=== PATIENT | male | born 1930 | race Caucasian/White ===

== ENCOUNTER 2016-11-06 10:56 | Inpatient (IN) ==
[2016-11-06] MEDS ORDERED: cefTRIAXone 1,000 MG in SODIUM CHLORIDE 0.9% 100 ML IV STA (11:56)
[2016-11-06] MEDS ORDERED: SODIUM CHLORIDE 0.9% 1,000 ML IV STA (11:56)
[2016-11-06] MEDS ORDERED: methylPREDNISolone SOD SUC 125 MG/2 ML VIAL IV STA (11:56)
[2016-11-06] MEDS ORDERED: ONDANSETRON 4 MG/2 ML VIAL IV STA (11:56)
[2016-11-06] MEDS ORDERED: ALBUTEROL 2.5 MG/3 ML NEB RESP TX SCH (12:00)
[2016-11-06 12:06] LABS: Basophils % 0.1 % (0.0-0.8); Eosinophils # 0.1 10*3/uL (0.0-0.87); Eosinophils % 0.4 % (0.00-10.9); Hematocrit 38.2 VOL% (42.0-52.0); Hemoglobin 12.7 GM/DL (14.0-18.0); Immature Granulocytes % 2.1 %; Immature Granulocytes Absolute 0.25 #; Lymphocytes # 1.2 10*3/uL (1.4-4.0); Lymphocytes % 10.2 % (21.2-54.2); Mean Corpuscular HGB Conc 33.2 GM/DL (32-36); Mean Corpuscular Hemoglobin 29 PG (27-34); Mean Platelet Volume 10.9 FL (9.6-12.0); Monocytes # 0.9 10*3/uL (0.11-0.8); Monocytes % 7.8 % (1.7-12.7); Neutrophils # 9.5 10*3/uL (1.4-7.4); Neutrophils % 79.4 % (38.7-73.9); Platelet Count 296 T/CUMM (130-400); Red Blood Count 4.44 MC/CUMM (3.8-5.5); Red Cell Distribution Width 13.6 % (9.3-17.3); White Blood Count 11.9 T/CUMM (4-12)
[2016-11-06 12:22] LABS: Albumin 2.9 G/DL (3.4-5.0); Bilirubin,Total 0.4 MG/DL (0.2-1.0); Calcium 8.9 MG/DL (8.5-10.1); Magnesium 2.4 MG/DL (1.8-2.4); Osmolality,Calculated 313.4 MOS/KG (273-304); Potassium 4.5 MMOL/L (3.5-5.1); Total Protein 6.9 G/DL (6.4-8.3); Troponin I Only 0.019 NG/ML (0.00-0.045)
--- NOTE | 2016-11-06 12:30 | Emergency Department Note ---
Cleo Bustos Rolonda, am scribing for, and in the presence of, Rigoberto Queen MD 12:18. Bret Bustos Charles R, MD, personally performed the services described in this documentation, ascribed by Willow Gallo in my presence, and it is both accurate and complete 230 . Arrival - Arrival Chief Complaint: Upper Respiratory Stated Complaint: sent by Dr Akbar Patterson to be admitted through ER ED Nursing Triage Note: C/o cough and generalized weakness-onset last week. Patient was sent by Dr. Patterson to be admitted here for possible bronchitis/ pneumonia. Son also reports that patient fell last night--has fallen 4 times in the past 2 days. Was offered admission on Thursday, but refused to stay. Mode of Arrival: Wheelchair Limitations: No Limitations Source: Patient, Family (son), Old Records Reviewed, RN Notes Reviewed - History of Present Illness HPI Narrative: Pt is a 86 y/o male who was transferred from Dr. Charlie Patterson to the ED for further evaluation of reproductive cough with an onset of x1 week. Pt's son states that pt was evaluated by Dr. Patterson, was Dx and treated as if he had bronchitis. Pt was advised to be admitted but declined and was sent home with medications. Sxs worsened which prompted visit to the ED. Son also states that pt fell yesterday and laid on the floor all night until he was able to crawl to the phone and call him. Pt confirms hitting his head after the fall, neck pain due to the fall, cold chills, and shaking. Onset (ago): week(s) Consistency: constant Severity: moderate Severity scale (1-10): 4 Allergies/Adverse Reactions: Allergies Allergy/AdvReac Type Severity Reaction Status Date / Time Iodinated Contrast Media - Allergy Severe ANAPHYLAXIS Verified 07/01/16 11:31 Oral and Home Medications: Home Medications Medication Instructions Recorded Confirmed Type Aspirin [Ecotrin] 81 mg PO DAILY 07/01/16 11/06/16 History Clorazepate [Tranxene] 3.75 mg PO TID 07/01/16 11/06/16 History Ferrous Sulfate 325 mg PO DAILY 07/01/16 11/06/16 History Meclizine [Antivert] 25 mg PO TID PRN 07/01/16 11/06/16 History Omeprazole Magnesium [Prilosec Otc] 20 mg PO DAILY 07/01/16 11/06/16 History PARoxetine [Paxil] 20 mg PO QAM 07/01/16 11/06/16 History Propranolol HCl [Propranolol Tab] 10 tablet PO DAILY 07/01/16 11/06/16 History Acetaminophen 650 mg PO Q6H PRN 11/06/16 11/06/16 History Magnesium Chloride [Slow Mag] 64 mg PO DAILY 11/06/16 11/06/16 History Multivitamin (Centrum) [Centrum 1 tablet PO DAILY 11/06/16 11/06/16 History Tab] Review of System - Review of System Constitutional: Present: chills (cold), weakness, other (shaking). Absent: fever Eyes: Absent: pain, redness Head/Ears/Nose/Throat: Absent: earache Respiratory: Present: cough. Absent: respiratory distress Cardiovascular: Absent: chest pain Gastrointestinal: Absent: abdominal pain, nausea, vomiting, diarrhea Musculoskeletal: Present: neck pain Medical,Surgical,& Family Hx - Medical History Cardio: History of: Hypertension Psychological: History of: Anxiety Disorders Endocrine: History of: Dyslipidemia Musculoskeletal: History of: Degenerative Disk Disease - Surgical History Cardiac Surgeries: Sugical HX of: Cardiac Surgery (for Valve repair) Thoracic Surgeries: Surgical HX of;: Lobectomy (partial right upper lobe) HEENT Surgeries: Surgical HX of: Eye Surgery (cataract) - Social History Smoking Status: Never smoker Frequency of Alcohol Use: None Type of Drug Use: None Exam Vital Signs: Vital Signs Temperature 98.5 F 11/06/16 11:30 Pulse Rate 70 11/06/16 13:41 Respiratory Rate 23 11/06/16 13:41 Blood Pressure 136/60 11/06/16 11:30 O2 Sat by Pulse Oximetry 100 11/06/16 13:41 - General General appearance: alert, in no apparent distress, lethargic (weak looking), other (temporal wasting) - Head Head exam: Present: atraumatic, normocephalic. Absent: normal inspection ( bruising on head due to falling) - Eye Eye exam: Present: PERRL, EOMI, other (sunken orbits) - ENT ENT exam: Present: mucous membranes dry. Absent: mucous membranes moist - Neck Neck exam: Present: other (posterior neck pain). Absent: normal inspection ( neck pain ) - Chest Chest inspection: Present: symmetric chest wall rise. 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 Absent: tenderness - Extremities Exam Extremities exam: Present: full ROM. Absent: tenderness - Back Exam Back exam: Present: full ROM. Absent: tenderness - Neurological Exam Neurological exam: Present: alert, oriented X3, CN II-XII intact - Psychiatric Psychiatric exam: Present: normal affect, normal mood - Skin Skin exam: Present: warm, dry, other (global atrophy) Course - Consultations Consultation #1: Dr. Patterson will admit patient Time: 14:12 Results - Labs CBC & BMP: 11/06/16 11:21 11/06/16 11:21 Lab Results: I have reviewed the patients labs Labs: Laboratory Tests 11/06/16 11/06/16 11:21 11:21 WBC 11.9 RBC 4.44 Hgb 12.7 L Hct 38.2 L MCV 86.0 L Plt Count 296 Neut % (Auto) 79.4 H Lymph % (Auto) 10.2 L Neut # (Auto) 9.5 H Lymph # (Auto) 1.2 L Ashe # (Auto) 0.9 H Sodium 140 Potassium 4.5 Chloride 105 Carbon Dioxide 24 Anion Gap 15.5 H BUN 110 H Creatinine 4.00 H GFR Calculation 14 BUN/Creatinine Ratio 27.00 H Calculated Osmolality 313.4 H Albumin 2.9 L Globulin 4.0 H Albumin/Globulin Ratio 0.7 L Laboratory Tests 11/06/16 11:21 B-Natriuretic Peptide 174 H - Diagnostic Findings Procedure: Chest x-ray: report reviewed by me (Right lower lung parenchymal disease of uncertain chronicity. Differential diagnosis includes interval development of scarring, pneumonia, and even pulmonary contusion. Follow-up chest x-ray may provide clarification. Chronic lung changes otherwise. Previous median sternotomy and cardia valve replacement.), CT: report reviewed by me ( Head/Brain: 1. 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 2. Global atrophy. 3. No acute hemorrhage or infarction or mass effect otherwise noted. Cervical Spine: 1. No fracture or dislocation. 2. Uncovertebral spurring and disc space narrowing at C5-C6 and C6-7. 3. Calcified granulomas in the left apex with underlying COPD and hyperinflation.) Disposition Clinical Impression: Upper respiratory infection, Bronchitis, CKD (chronic kidney disease) stage 4, GFR 15-29 ml/min, Dehydration, History of falling, Generalized weakness, Debility, Pneumonia, Acute on chronic renal failure Case discussed with: patient, patient's family Disposition: Still a Patient Condition: Guarded Time of Disposition: 14:13
--- NOTE | 2016-11-06 12:38 | CT Report ---
Exam: CT scan of brain without contrast Date: 11/06/2016 Indication: Pain secondary to fall Comparison: None Patient's classification: Emergency department Technical: Images were obtained from the skull base to the vertex without the use of intravenous contrast. Dose reduction was performed with decreasing kv and mA and automated exposure Total DLP: 1081.1 mGy*cm Findings: The brainstem is unremarkable. The cerebellum reveals some atrophy changes present. Cerebral hemispheres reveal old infarction or encephalomalacia change in the frontal subcortical white matter junction on the right. Small vessel changes are present. There is enlargement of ventricles and global atrophy. The paranasal sinuses are intact. No obvious acute hemorrhage or infarction present. The mastoids are unremarkable. Vascular plaque within the internal carotid arteries. Impression: 1. 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 2. Global atrophy 3. No acute hemorrhage or infarction or mass effect otherwise noted. PROCEDURE INTERPRETED AT [facility] DEPARTMENT OF RADIOLOGY Final Report Signed by: Dr. Jose Elias Pisano
[2016-11-06] MEDS ORDERED: cefTRIAXone 1,000 MG VIAL ONE (12:41)
--- NOTE | 2016-11-06 12:41 | CT Report ---
Exam:CT cervical spine wo con Date:11/06/2016 11:56 AM Indication: Pain secondary to fall Comparison: None Total DLP: 301.8 mGy*cm Technical: Sagittal axial and coronal imaging was available for review with out the use of intravenous contrast. Dose reduction was performed with decreasing kv and mA and automated exposure Findings: 7 cervical vertebral bodies are demonstrated. The vertebral body heights, lamina, pedicles, and posterior elements are intact. The arch at C1 and C2 and odontoid process are intact. The examination reveals spur formation and disc space narrowing present at C5-C6 to lesser degree C6-7. Some calcification of the nuchal fold present posteriorly at C7. Uncovertebral osteophytic spurring present at multiple levels. Facet arthropathy is present. Vascular calcification of the carotid arteries present. Calcified granulomas are present in the left upper chest with underlying COPD and hyperinflation. Impression 1. No fracture or dislocation. 2. Uncovertebral spurring and disc space narrowing at C5-C6 and C6-7 3. Calcified granulomas in the left apex with underlying COPD and hyperinflation. PROCEDURE INTERPRETED AT [facility] DEPARTMENT OF RADIOLOGY Final Report Signed by: Dr. Jose Elias Pisano
[2016-11-06] MEDS ORDERED: ONDANSETRON 4 MG/2 ML VIAL ONE (12:42)
[2016-11-06] MEDS ORDERED: methylPREDNISolone SOD SUC 125 MG/2 ML VIAL ONE (12:42)
--- NOTE | 2016-11-06 13:12 | XRay Report ---
History: Shortness of breath Date: 11/06/2016 Study: Chest x-ray AP portable Comparison exam: December 21, 2009 The cardiac silhouette is not enlarged. The patient is status post previous median sternotomy and cardiac valve replacement. The pulmonary vasculature is not engorged. There is no layering pleural effusion. There is some patchy and strandy parenchymal density in the right mid to lower lung which could represent interval development of scarring, pneumonia, or even element of pulmonary contusion. The patient reportedly fell. There is no pneumothorax. There are some scattered emphysematous changes. There are old rib fractures on the left. Impression: Right lower lung parenchymal disease of uncertain chronicity. Differential diagnosis includes interval development of scarring, pneumonia, and even pulmonary contusion. Follow-up chest x-ray may provide clarification. Chronic lung changes otherwise. Previous median sternotomy and cardiac valve replacement PROCEDURE INTERPRETED AT [facility] DEPARTMENT OF RADIOLOGY Final Report Signed by: Dr. Rita Shanks
[2016-11-06] MEDS ORDERED: ALBUTEROL/IPRATROPIUM 3 ML NEB RESP TX PRN (17:20)
[2016-11-06] MEDS ORDERED: MORPHINE 2 MG/1 ML SYRINGE IV PRN (17:20)
[2016-11-06] MEDS ORDERED: ONDANSETRON 4 MG/2 ML VIAL IV PRN (17:20)
[2016-11-06] MEDS ORDERED: ACETAMINOPHEN 325 MG TABLET PO PRN (17:20)
[2016-11-06] MEDS ORDERED: MECLIZINE 25 MG TABLET PO PRN (17:20)
[2016-11-06] MEDS ORDERED: SODIUM CHLORIDE 0.9% 500 ML IV ONE (18:11)
[2016-11-06] MEDS: CLORAZEPATE 3.75 MG TABLET PO SCH ×2 (18:17→22:03)
[2016-11-06] MEDS: SODIUM CHLORIDE 0.9% 1,000 ML IV SCH (18:17)
--- NOTE | 2016-11-06 18:40 | Family Practice History&Phys ---
Assessment and Plan (1) Upper respiratory infection Status: Acute Assessment and plan: 11/06/2016: Patient is currently on Rocephin and Zithromax. I am going to get a pulmonary consult since the patient did fail outpatient therapy. Is on O2 as needed Current Visit: Yes (2) Bronchitis Status: Acute Assessment and plan: 11/06/2016: As noted above pulmonary consult and we will do breathing treatments duo nebs. Current Visit: Yes (3) Dehydration Status: Acute Assessment and plan: 11/06/2016. Patient actually is of normal saline to see if this will hydrate him some. We will have to be careful with fluid overload. Baseline fluids are at 125 mils an hour from now. Current Visit: Yes (4) History of falling Status: Acute Assessment and plan: 11/06/2016: Hopefully turning him around with antibiotics and fluids will keep him from falling. He is probably orthostatic Current Visit: Yes (5) Debility Status: Acute Assessment and plan: 11/06/2016: Please see notes above Current Visit: Yes (6) Pneumonia Status: Acute Assessment and plan: 11/06/2016: Placed on antibiotic Current Visit: Yes History of Present Illness Chief complaint: Shortness of breath, status post fall, pneumonia History of present illness: Mr. Pittman is a 86 year old male Came to my clinic this past Thursday with shortness of breath and it was obvious that he had either bronchitis or pneumonia. We discussed coming to the hospital and the patient was quite weak. he did not want to come in at that time so we treated him with an injection of Rocephin and put him on antibiotics. Today he was feeling worse and apparently had a fall at home last night. He has some generalized weakness, today and has fallen multiple times over the last few days. Apparently he hit his head and neck but we did do a CAT scan of both of these which were negative. Today his chest x-ray reveals some right lower and middle lobe infiltrate. I do not believe this is an aspiration issue and he has been placed on Rocephin and Zithromax. He does have stage IV renal disease with creatinine of 4 and has had this chronically. We are going to have to monitor this closely and watch for nephrotoxic drugs. Patient lives at home with his who is even more debilitated than he is. He does take care of her to the extent that he can and this is some troubling for him. We are going to get social media marketing specialist involved. He may require swing bed before he gets back home. He is very cognitive for his age and has no other issues except for mild depression probably relating to having to care for his . Home Medications Medication Instructions Recorded Confirmed Type Aspirin [Ecotrin] 81 mg PO DAILY 07/01/16 11/06/16 History Clorazepate [Tranxene] 3.75 mg PO TID 07/01/16 11/06/16 History Ferrous Sulfate 325 mg PO DAILY 07/01/16 11/06/16 History Meclizine [Antivert] 25 mg PO TID PRN 07/01/16 11/06/16 History Omeprazole Magnesium [Prilosec Otc] 20 mg PO DAILY 07/01/16 11/06/16 History PARoxetine [Paxil] 20 mg PO QAM 07/01/16 11/06/16 History Propranolol HCl [Propranolol Tab] 10 tablet PO DAILY 07/01/16 11/06/16 History Acetaminophen 650 mg PO Q6H PRN 11/06/16 11/06/16 History Magnesium Chloride [Slow Mag] 64 mg PO DAILY 11/06/16 11/06/16 History Multivitamin (Centrum) [Centrum 1 tablet PO DAILY 11/06/16 11/06/16 History Tab] Allergies Allergy/AdvReac Type Severity Reaction Status Date / Time Iodinated Contrast Media - Allergy Severe ANAPHYLAXIS Verified 07/01/16 11:31 Oral and 12 point system: reviewed and no additional remarkable complaints except as stated (Except those mentioned in the history and physical.) Medical,Surgical,& Family Hx - Medical History Cardio: History of: Hypertension Psychological: History of: Anxiety Disorders Endocrine: History of: Dyslipidemia Musculoskeletal: History of: Degenerative Disk Disease - Surgical History Cardiac Surgeries: Sugical HX of: Cardiac Surgery (for Valve repair) Thoracic Surgeries: Surgical HX of;: Lobectomy (partial right upper lobe) HEENT Surgeries: Surgical HX of: Eye Surgery (cataract) - Social History Smoking Status: Never smoker Frequency of Alcohol Use: None Type of Drug Use: None Exam - Constitutional Vitals: Period Temp Pulse Resp BP Sys/Serrano Pulse Ox Last 24 Hr 97.4 F-98.5 F 67-92 20-23 89-148/44-81 94-100 Exam: Generally very weak man appears his approximate age of 86 years. Is answering questions appropriately and has good wit. HEENT neck is supple trachea midline. The oropharynx is negative without any angioedema. Cardiovascular Lungs positive rhonchi particularly in the right field. Chest x-ray does reveal lung changes consistent with infiltrate or according to radiology possible pulmonary contusion. Abdomen soft nondistended nontender patient is actually eating at this moment. Extremities no clubbing cyanosis or edema positive radial and dorsalis pedal pulses bilateral upper and lower extremities Neurologically no cranial nerve deficits are appreciated. No peripheral lateralizing signs. Results - Labs CBC & BMP: 11/06/16 11:21 11/06/16 11:21
[2016-11-06] MEDS: AZITHROMYCIN INJ 500 MG in SODIUM CHLORIDE 0.9% 250 ML IV SCH (19:16)
[2016-11-06] MEDS: DOCUSATE SODIUM 100 MG CAPSULE PO SCH (22:02)
[2016-11-06] MEDS: ENOXAPARIN 30 MG/0.3 ML SYRINGE SUBCUT SCH (22:02)
[2016-11-07] MEDS: SODIUM CHLORIDE 0.9% 1,000 ML IV SCH ×6 (06:20→17:51)
[2016-11-07 06:35] LABS: Basophils % 0.1 % (0.0-0.8); Hemoglobin 10.6 GM/DL (14.0-18.0); Immature Granulocytes % 1.6 %; Immature Granulocytes Absolute 0.16 #; Lymphocytes # 0.6 10*3/uL (1.4-4.0); Lymphocytes % 6.1 % (21.2-54.2); Mean Corpuscular HGB Conc 32.1 GM/DL (32-36); Mean Corpuscular Hemoglobin 28 PG (27-34); Mean Corpuscular Volume 87.1 FL (87-102); Mean Platelet Volume 10.8 FL (9.6-12.0); Monocytes # 0.2 10*3/uL (0.11-0.8); Monocytes % 2.3 % (1.7-12.7); Neutrophils # 9.2 10*3/uL (1.4-7.4); Neutrophils % 89.9 % (38.7-73.9); Platelet Count 272 T/CUMM (130-400); Red Blood Count 3.79 MC/CUMM (3.8-5.5); Red Cell Distribution Width 13.7 % (9.3-17.3); White Blood Count 10.3 T/CUMM (4-12)
[2016-11-07 07:08] LABS: Albumin 2.5 G/DL (3.4-5.0); Bilirubin,Total 0.6 MG/DL (0.2-1.0); Calcium 8.1 MG/DL (8.5-10.1); Magnesium 2.4 MG/DL (1.8-2.4); Potassium 4.5 MMOL/L (3.5-5.1); Total Protein 6.1 G/DL (6.4-8.3)
--- NOTE | 2016-11-07 07:12 | XRay Report ---
Exam: XR chest 2V Date: 11/07/2016 4:00 AM Indication: Shortness of breath Comparison: 11/06/2016 Technical: PA lateral Findings: Component of fibrotic scarring present over the right chest. Calcified node in the perihilar region with calcified nodule in the left apical region. Old left rib fractures are present. Previous sternotomy and valve replacement surgery. No obvious pneumothorax. The bony thoracic spine is demonstrated with degenerative changes without acute findings Impression: 1. Underlying component of COPD and fibrotic scarring with previous sternotomy and valve replacement surgery. 2. Underlying granuloma changes also present 3. No obvious acute infiltrate or congestive failure PROCEDURE INTERPRETED AT [facility] DEPARTMENT OF RADIOLOGY Final Report Signed by: Dr. Jose Elias Pisano
[2016-11-07] MEDS ORDERED: NON-FORMULARY MEDICATION (Omeprazole Magnesium [Prilosec Otc] 20 MG) PO SCH (09:00)
--- NOTE | 2016-11-07 09:36 | Pulmonology Consult Note ---
Assessment and Plan (1) History of falling Status: Acute Assessment and plan: The patient apparently has been very weak and has multiple falls. He will need to be evaluated from a social standpoint. He may need assisted living. Current Visit: Yes (2) Debility Status: Acute Assessment and plan: The patient is an elderly male that does look somewhat debilitated. Current Visit: Yes (3) Pneumonia Status: Acute Assessment and plan: The patient does have infiltrates in his right base and right middle lobe. He will continue with IV antibiotics. Current Visit: Yes (4) HTN (hypertension), benign Status: Chronic Assessment and plan: The patient's blood pressure is under good control at present Current Visit: No (5) CKD (chronic kidney disease) stage 4, GFR 15-29 ml/min Problem details: Immproved to near baseline. Status: Chronic Assessment and plan: The patient's creatinine is 3.4 today. Current Visit: Yes History of Present Illness Chief complaint: Pneumonia History of present illness: Mr. Pittman is a 86 year old white male that came in yesterday with likely pneumonia. The patient has been weak and debilitated lately and has been falling at home. All week he has been having some cough and congestion and came in more short of breath. He was found to have worsening infiltrates in his right lung and is admitted for pneumonia. The patient says he feels a little better this morning. He has been coughing up some sputum. He is not having any chest pain. He has not had any definite lung disease although he did have some lung surgery in the past. He is also had a valve repair in the past. He does have a history of hypertension and hyperlipidemia. He does have chronic renal insufficiency. Home Medications Medication Instructions Recorded Confirmed Type Aspirin [Ecotrin] 81 mg PO DAILY 07/01/16 11/06/16 History Clorazepate [Tranxene] 3.75 mg PO TID 07/01/16 11/06/16 History Ferrous Sulfate 325 mg PO DAILY 07/01/16 11/06/16 History Meclizine [Antivert] 25 mg PO TID PRN 07/01/16 11/06/16 History Omeprazole Magnesium [Prilosec Otc] 20 mg PO DAILY 07/01/16 11/06/16 History PARoxetine [Paxil] 20 mg PO QAM 07/01/16 11/06/16 History Propranolol HCl [Propranolol Tab] 10 tablet PO DAILY 07/01/16 11/06/16 History Acetaminophen 650 mg PO Q6H PRN 11/06/16 11/06/16 History Benzonatate 1 capsule PO TID PRN 11/06/16 11/06/16 History Magnesium Chloride [Slow Mag] 64 mg PO DAILY 11/06/16 11/06/16 History Meloxicam [Mobic] 12.5 mg PO DAILY 11/06/16 11/06/16 History Multivitamin (Centrum) [Centrum 1 tablet PO DAILY 11/06/16 11/06/16 History Tab] Tamsulosin HCl 1 tablet PO BEDTIME 11/06/16 11/06/16 History levoFLOXacin [Levofloxacin] 1 tablet PO DAILY 11/06/16 11/06/16 History Allergies Allergy/AdvReac Type Severity Reaction Status Date / Time Iodinated Contrast Media - Allergy Severe ANAPHYLAXIS Verified 07/01/16 11:31 Oral and - Constitutional Constitutional: Present: fatigue, fever(s), frequent falls, weakness. Absent: chills - EENT Eyes: Absent: loss of vision Ears: Present: decreased hearing Nose, mouth and throat: Absent: dysphagia, headache(s), sinus pressure - Cardiovascular Cardiovascular: Present: dyspnea on exertion. Absent: chest pain at rest, edema , orthopnea, palpitations - Respiratory Respiratory: Present: cough, dyspnea on exertion, change in phlegm color. Absent: hemoptysis, pain on inspiration - Gastrointestinal Gastrointestinal: Absent: abdominal pain, change in bowel habits, dysphagia, nausea, vomiting - Genitourinary Genitourinary: Absent: difficulty urinating, dysuria, hematuria - Musculoskeletal Musculoskeletal: Present: arthralgias, muscle weakness - Neurological Neurological: Absent: abnormal speech, focal weakness, paresthesias - Psychiatric Psychiatric: Present: depression Exam (Pulmonay) H&P - Constitutional Vitals: Period Temp Pulse Resp BP Sys/Serrano Pulse Ox Last 24 Hr 97.1 F-98.5 F 67-96 16-23 89-148/44-81 94-100 General appearance: normal weight, no acute distress (Patient is a elderly man but looks reasonably comfortable in bed.) - Head Head exam: Present: normal inspection, normocephalic - Eye Eye exam: Present: EOMI. Absent: scleral icterus Pupils: Present: BRIGITTE - ENT ENT exam: Present: normal exam - Neck Neck exam: Present: normal inspection. Absent: lymphadenopathy, thyromegaly - Respiratory Respiratory exam: Present: rales, rhonchi, other (He has fairly good breath sounds bilaterally). Absent: accessory muscle use - Cardiovascular Cardiovascular exam: Present: regular rate and rhythm, systolic murmur (He has a soft murmur). Absent: gallop - GI/Abdominal GI/Abdominal exam: Present: normal bowel sounds, soft. Absent: organomegaly, tenderness - Extremities Exam Extremities exam: Absent: calf tenderness, edema - Neurological Exam Neurological exam: Present: alert, oriented X3, CN II-XII intact. Absent: motor sensory deficit - Psychiatric Psychiatric exam: Present: normal affect - Skin Skin exam: Present: warm, dry Medical,Surgical,& Family Hx - Medical History Cardio: History of: Hypertension Psychological: History of: Anxiety Disorders Endocrine: History of: Dyslipidemia Musculoskeletal: History of: Degenerative Disk Disease - Surgical History Cardiac Surgeries: Sugical HX of: Cardiac Surgery (for Valve repair) Thoracic Surgeries: Surgical HX of;: Lobectomy (partial right upper lobe) HEENT Surgeries: Surgical HX of: Eye Surgery (cataract) - Social History Smoking Status: Never smoker Frequency of Alcohol Use: None Type of Drug Use: None Results - Labs CBC & BMP: 11/07/16 05:56 11/07/16 05:56 - Diagnostic Findings Procedure: Chest x-ray: image reviewed by me, report reviewed by me (Chest x- ray does show patchy infiltrates in the right lower lobe and right lower lobe.)
[2016-11-07] MEDS: MULTIVITAMIN (CENTRUM) TABLET PO SCH (10:32)
[2016-11-07] MEDS: FERROUS SULFATE 325 MG TABLET PO SCH (10:32)
[2016-11-07] MEDS: MAGNESIUM CHLORIDE 64 MG TABLET PO SCH (10:32)
[2016-11-07] MEDS: ASPIRIN EC 81 MG TABLET PO SCH (10:32)
[2016-11-07] MEDS: PARoxetine 20 MG TABLET PO SCH (10:32)
[2016-11-07] MEDS: DOCUSATE SODIUM 100 MG CAPSULE PO SCH ×2 (10:33→20:49)
[2016-11-07] MEDS: PROPRANOLOL 10 MG TABLET PO SCH (10:33)
[2016-11-07] MEDS: PANTOPRAZOLE 40 MG VIAL IV SCH (10:33)
[2016-11-07] MEDS: CLORAZEPATE 3.75 MG TABLET PO SCH ×3 (10:38→20:49)
[2016-11-07] MEDS ORDERED: SODIUM CHLORIDE 0.9% 1,000 ML IV ONE (12:27)
[2016-11-07] MEDS: cefTRIAXone 1,000 MG in SODIUM CHLORIDE 0.9% 100 ML IV SCH (14:24)
[2016-11-07] MEDS ORDERED: GLUCAGON 1 MG VIAL IM PRN (15:02)
[2016-11-07] MEDS ORDERED: DEXTROSE 50% 25 GM/50 ML VIAL IV PRN (15:02)
--- NOTE | 2016-11-07 15:06 | Family Practice Progress Note ---
Family Practice - PN: Subj Interval history: Patient seen this morning. He still very weak and actually coughing a little bit. States he feels less strength than yesterday. Does seem to be with a little continued dehydration. Did eat breakfast this morning. Has not had a bowel movement but states he is passing gas and also voiding fairly well. No fever or chills. Pulmonary to see him agreed with pneumonia and we are going to continue him on his current antibiotics and will be in over the weekend. I will get adoption social worker to see him for discharge planning, I do believe he will need swing bed for a while. We will also continue breathing treatments Exam (Progress Note) - Constitutional Vitals: Period Temp Pulse Resp BP Sys/Serrano Pulse Ox Last 24 Hr 97.1 F-98.4 F 72-96 16-20 89-142/44-72 95-98 Exam: Generally very weak, continues to be so HEENT neck is supple trachea midline. The oropharynx is negative without any angioedema. Cardiovascular Lungs positive rhonchi particularly in the right field. No wheezing at present Abdomen soft nondistended nontender patient is actually eating at this moment. Extremities no clubbing cyanosis or edema positive radial and dorsalis pedal pulses bilateral upper and lower extremities Neurologically no cranial nerve deficits are appreciated. No peripheral lateralizing signs. Results - Labs CBC & BMP: 11/07/16 05:56 11/07/16 05:56 Assessment and Plan (1) Upper respiratory infection Status: Acute Assessment and plan: 11/06/2016: Patient is currently on Rocephin and Zithromax. I am going to get a pulmonary consult since the patient did fail outpatient therapy. Is on O2 as needed 11/07/2016: Continuing Rocephin and Zithromax. Pulmonary seen and no overall changes may Current Visit: Yes (2) Bronchitis Status: Acute Assessment and plan: 11/06/2016: As noted above pulmonary consult and we will do breathing treatments duo nebs. 11/07/2016: On antibiotics as noted above Current Visit: Yes (3) Dehydration Status: Acute Assessment and plan: 11/06/2016. Patient actually is of normal saline to see if this will hydrate him some. We will have to be careful with fluid overload. Baseline fluids are at 125 mils an hour from now. 11/07/2016: I went ahead and gave him a 500 male additional bolus of IV fluids to get his blood pressure up which is running around 95/60 Current Visit: Yes (4) History of falling Status: Acute Assessment and plan: 11/06/2016: Hopefully turning him around with antibiotics and fluids will keep him from falling. He is probably orthostatic 11/07/2016: We will get PT and OT consult Current Visit: Yes (5) Debility Status: Acute Assessment and plan: 11/06/2016: Please see notes above 11/07/2016: As noted above. We will get PT and OT Current Visit: Yes (6) Pneumonia Status: Acute Assessment and plan: 11/06/2016: Placed on antibiotic Current Visit: Yes
[2016-11-07] MEDS: AZITHROMYCIN INJ 500 MG in SODIUM CHLORIDE 0.9% 250 ML IV SCH (17:50)
[2016-11-07] MEDS: ENOXAPARIN 30 MG/0.3 ML SYRINGE SUBCUT SCH (20:49)
[2016-11-08] MEDS: ALUMINUM/MAGNES/SIMETH MAX STR 30 ML UDCUP PO PRN (01:10)
[2016-11-08] MEDS: SODIUM CHLORIDE 0.9% 1,000 ML IV SCH ×4 (01:14→23:15)
[2016-11-08] MEDS: PANTOPRAZOLE 40 MG VIAL IV SCH (09:15)
[2016-11-08] MEDS: ASPIRIN EC 81 MG TABLET PO SCH (09:15)
[2016-11-08] MEDS: MULTIVITAMIN (CENTRUM) TABLET PO SCH (09:15)
[2016-11-08] MEDS: MAGNESIUM CHLORIDE 64 MG TABLET PO SCH (09:15)
[2016-11-08] MEDS: FERROUS SULFATE 325 MG TABLET PO SCH (09:15)
[2016-11-08] MEDS: PROPRANOLOL 10 MG TABLET PO SCH (09:15)
[2016-11-08] MEDS: PARoxetine 20 MG TABLET PO SCH (09:15)
[2016-11-08] MEDS: DOCUSATE SODIUM 100 MG CAPSULE PO SCH ×3 (09:15→20:42)
[2016-11-08] MEDS: CLORAZEPATE 3.75 MG TABLET PO SCH ×3 (09:15→21:06)
--- NOTE | 2016-11-08 10:54 | Internal Med Progress Note ---
Assessment and Plan (1) Bronchitis Status: Acute Current Visit: Yes (2) Debility Status: Acute Current Visit: Yes (3) Dehydration Status: Acute Current Visit: Yes (4) History of falling Status: Acute Current Visit: Yes (5) Pneumonia Status: Acute Current Visit: Yes (6) Upper respiratory infection Status: Acute Current Visit: Yes (7) CKD (chronic kidney disease) stage 4, GFR 15-29 ml/min Problem details: Immproved to near baseline. Status: Chronic Current Visit: Yes (8) BPH w urinary obs/LUTS Problem details: Commonly causes an RTA 4 type picture with hyperkalemia. No obstruction. Continue flomax 0.4 once hs. May be increased in a week or so if sxs not improved. Counseled regarding orthostatic side effects. Urology to see today. Status: Chronic Current Visit: No (9) Polycystic kidney disease Problem details: mass like effect Status: Chronic Current Visit: Yes Internal Medicine - PN: Subj Interval history: This is an 86 year old male patient of Dr. Charlie Patterson with history of chronic renal insufficiency, HTN, who presented with pneumonia, bronchitis, dehydration and acute renal failure. He is doing better, but not yet ready for discharge. Exam (Progress Note) - Constitutional Vitals: Period Temp Pulse Resp BP Sys/Serrano Pulse Ox Last 24 Hr 97.0 F-98.6 F 75-90 18-22 103-151/51-83 93-97 General appearance: no acute distress - Respiratory Respiratory exam: Present: clear to auscultation bilaterally - Cardiovascular Cardiovascular exam: Present: regular rate and rhythm - GI/Abdominal GI/Abdominal exam: Present: normal bowel sounds, soft. Absent: tenderness - Extremities Exam Extremities exam: Absent: edema - Neurological Exam Neurological exam: Present: alert - Psychiatric Psychiatric exam: Present: normal mood - Skin Skin exam: Present: warm, dry Results - Labs CBC & BMP: 11/07/16 05:56 11/07/16 05:56 - Diagnostic Findings Procedure: Chest x-ray: report reviewed by me
--- NOTE | 2016-11-08 11:21 | Pulmonology Progress Note ---
Pulmonary - PN: Subj Interval history: This is an 86-year-old male whom I am seeing for Dr. Oswaldo Mcmullen. Patient is under the care of Dr. Sulaiman Patterson. This man has had a right lung pneumonia and he is been very debilitated. His breathing has improved. There were no new requests. There were no complaints. Physical exam. Vital signs. See below Neurologic. Unchanged from previous descriptions. Neck. No meningismus Chest fairly clear Heart no gallop Abdomen. Positive bowel sounds Lower extremities no evidence of deep venous thrombophlebitis The remainder of the physical exam is negative Plan. 1. Continue present regimen 2. No changes Exam (Progress Note) - Constitutional Vitals: Period Temp Pulse Resp BP Sys/Serrano Pulse Ox Last 24 Hr 97.0 F-98.6 F 75-90 18-22 103-151/51-83 93-97 Results - Labs CBC & BMP: 11/07/16 05:56 11/07/16 05:56
[2016-11-08] MEDS: cefTRIAXone 1,000 MG in SODIUM CHLORIDE 0.9% 100 ML IV SCH (13:37)
[2016-11-08] MEDS: MAGNESIUM HYDROXIDE SUSP 30 ML UDCUP PO SCH ×2 (13:37→21:06)
[2016-11-08] MEDS: AZITHROMYCIN INJ 500 MG in SODIUM CHLORIDE 0.9% 250 ML IV SCH (16:59)
[2016-11-08] MEDS: ENOXAPARIN 30 MG/0.3 ML SYRINGE SUBCUT SCH (20:42)
[2016-11-09] MEDS: ACETAMINOPHEN 325 MG TABLET PO PRN ×3 (02:24→23:43)
[2016-11-09] MEDS: MAGNESIUM HYDROXIDE SUSP 30 ML UDCUP PO SCH ×3 (05:25→21:16)
[2016-11-09 05:58] LABS: Basophils % 0.1 % (0.0-0.8); Eosinophils # 0.1 10*3/uL (0.0-0.87); Eosinophils % 1.1 % (0.00-10.9); Hematocrit 31.5 VOL% (42.0-52.0); Immature Granulocytes % 2.7 %; Immature Granulocytes Absolute 0.27 #; Lymphocytes # 1.3 10*3/uL (1.4-4.0); Lymphocytes % 12.6 % (21.2-54.2); Mean Corpuscular HGB Conc 31.7 GM/DL (32-36); Mean Corpuscular Hemoglobin 28 PG (27-34); Monocytes # 0.6 10*3/uL (0.11-0.8); Neutrophils # 7.8 10*3/uL (1.4-7.4); Neutrophils % 77.5 % (38.7-73.9); Platelet Count 297 T/CUMM (130-400); Red Blood Count 3.58 MC/CUMM (3.8-5.5); Red Cell Distribution Width 14.3 % (9.3-17.3); White Blood Count 10.1 T/CUMM (4-12)
[2016-11-09 06:46] LABS: Alanine Aminotransferase 17 U/L (16-61); Albumin 2.2 G/DL (3.4-5.0); Alkaline Phosphatase 74 U/L (45-117); Aspartate Amino Transferase 21 U/L (0-37); Bilirubin,Total < 0.39 MG/DL (0.2-1.0); Blood Urea Nitrogen 65 MG/DL (7-18); Calcium 8.1 MG/DL (8.5-10.1); Glucose 83 MG/DL (74-106); Magnesium 1.8 MG/DL (1.8-2.4); Osmolality,Calculated 303.8 MOS/KG (273-304); Phosphorous 2.7 MG/DL (2.5-4.9); Potassium 5.1 MMOL/L (3.5-5.1); Sodium 144 MMOL/L (136-145); Total Protein 5.1 G/DL (6.4-8.3)
[2016-11-09] MEDS: SODIUM CHLORIDE 0.9% 1,000 ML IV SCH ×2 (08:00→21:12)
[2016-11-09] MEDS: PANTOPRAZOLE 40 MG VIAL IV SCH (08:03)
[2016-11-09] MEDS: ASPIRIN EC 81 MG TABLET PO SCH (08:03)
[2016-11-09] MEDS: DOCUSATE SODIUM 100 MG CAPSULE PO SCH ×2 (08:03→21:11)
[2016-11-09] MEDS: PROPRANOLOL 10 MG TABLET PO SCH (08:03)
[2016-11-09] MEDS: MULTIVITAMIN (CENTRUM) TABLET PO SCH (08:03)
[2016-11-09] MEDS: MAGNESIUM CHLORIDE 64 MG TABLET PO SCH (08:03)
[2016-11-09] MEDS: PARoxetine 20 MG TABLET PO SCH (08:03)
[2016-11-09] MEDS: CLORAZEPATE 3.75 MG TABLET PO SCH ×3 (08:03→21:11)
[2016-11-09] MEDS: FERROUS SULFATE 325 MG TABLET PO SCH (08:03)
--- NOTE | 2016-11-09 11:22 | Internal Med Progress Note ---
Assessment and Plan (1) Bronchitis Status: Resolved Current Visit: Yes (2) Debility Status: Chronic Current Visit: Yes (3) Dehydration Status: Acute Current Visit: Yes (4) History of falling Status: Chronic Current Visit: Yes (5) Pneumonia Status: Acute Current Visit: Yes (6) Upper respiratory infection Status: Acute Current Visit: Yes (7) CKD (chronic kidney disease) stage 4, GFR 15-29 ml/min Problem details: Immproved to near baseline. Status: Chronic Current Visit: Yes (8) BPH w urinary obs/LUTS Problem details: Commonly causes an RTA 4 type picture with hyperkalemia. No obstruction. Continue flomax 0.4 once hs. May be increased in a week or so if sxs not improved. Counseled regarding orthostatic side effects. Urology to see today. Status: Chronic Current Visit: No (9) Polycystic kidney disease Problem details: mass like effect Status: Chronic Current Visit: Yes Internal Medicine - PN: Subj Interval history: This is an 86 year old male patient of Dr. Charlie Patterson with history of chronic renal insufficiency, HTN, who presented with pneumonia, bronchitis, dehydration and acute renal failure. He is doing better, and will be ready for discharge in the morning. Exam (Progress Note) - Constitutional Vitals: Period Temp Pulse Resp BP Sys/Serrano Pulse Ox Last 24 Hr 98.2 F-99.3 F 69-86 18-22 117-164/59-91 90-99 Exam: General appearance: no acute distress - Respiratory Respiratory exam: Present: clear to auscultation bilaterally - Cardiovascular Cardiovascular exam: Present: regular rate and rhythm - GI/Abdominal GI/Abdominal exam: Present: normal bowel sounds, soft. Absent: tenderness - Extremities Exam Extremities exam: Absent: edema - Neurological Exam Neurological exam: Present: alert - Psychiatric Psychiatric exam: Present: normal mood - Skin Skin exam: Present: warm, dry Results - Labs CBC & BMP: 11/09/16 04:16 11/09/16 04:16
[2016-11-09] MEDS: cefTRIAXone 1,000 MG in SODIUM CHLORIDE 0.9% 100 ML IV SCH (14:03)
--- NOTE | 2016-11-09 14:22 | Pulmonology Progress Note ---
Pulmonary - PN: Subj Interval history: This is an 86-year-old male whom I am seeing for Dr. Oswaldo Mcmullen. Patient is under the care of Dr. Sulaiman Patterson. This man has had a right lung pneumonia and he is been very debilitated. His breathing has improved. There were no new requests. There were no complaints. 11/09/2016. Patient had an uneventful night and he says he is feeling better. He had no new requests. White count is dropped to 10,100. H&H 10.0 31.5. Platelets 297,000. Electrolytes are normal. Creatinine is dropped from 4.0- 2.0 with a BUN of 65. Calcium is low at 8.1. Albumin is low at 2.2 protein is low at 5.1. Overall this patient appears to be slowly and gradually improving. His lab was reviewed and his medicines were reviewed. Physical exam. Vital signs. See below Neurologic. Unchanged from previous descriptions. Neck. No meningismus Chest fairly clear Heart no gallop Abdomen. Positive bowel sounds Lower extremities no evidence of deep venous thrombophlebitis The remainder of the physical exam is negative Plan. 11/08/2016. 1. Continue present regimen 2. No changes 11/10/2015. 1. See my note above for today 2. Continue present regimen Exam (Progress Note) - Constitutional Vitals: Period Temp Pulse Resp BP Sys/Serrano Pulse Ox Last 24 Hr 97.9 F-99.3 F 69-86 18-22 122-164/59-71 90-99 Results - Labs CBC & BMP: 11/09/16 04:16 11/09/16 04:16
[2016-11-09] MEDS: AZITHROMYCIN INJ 500 MG in SODIUM CHLORIDE 0.9% 250 ML IV SCH (17:01)
[2016-11-09] MEDS: ENOXAPARIN 30 MG/0.3 ML SYRINGE SUBCUT SCH (21:11)
--- NOTE | 2016-11-09 23:11 | Discharge Summary ---
Hospital Course - Hospital Course Hospital Course: This is an 86 year old male patient of Dr. Charlie Patterson with history of chronic renal insufficiency, HTN, who presented with pneumonia, bronchitis, dehydration and acute renal failure. He is doing better. Dehydration has steadily improved enough that he will be discharged to his son' s care. Also, he is breathing much better with treatment and feels ready to go home. Diagnosis - Discharge Diagnosis (1) Bronchitis Status: Resolved (2) Debility Status: Chronic (3) Dehydration Status: Resolved (4) History of falling Status: Chronic (5) Pneumonia Status: Acute (6) Upper respiratory infection Status: Resolved (7) BPH w urinary obs/LUTS Status: Chronic (8) Polycystic kidney disease Status: Chronic Discharge Plan - Discharge Data Disposition: Disch To Home/Self Care Condition at Discharge: Stable Discharge Diet: regular diet Activity: increase activity as tolerated - Discharge Medications New Albuterol Inhaler [Proventil Inhaler] 2 puff INH Q4H PRN #1 inhaler PRN Reason: Shortness Of Breath/Wheezing Alum/Mag/Simeth Max Str Liquid [Mylanta Max Strength Liquid] 30 ml PO Q6H PRN PRN Reason: Dyspepsia Azithromycin Tab [Zithromax Tab] 250 mg PO DAILY #10 tablet Magnesium Hydroxide Susp [Milk of Magnesia] 30 ml PO Q8HR Docusate Sodium Cap [Colace Cap] 100 mg PO BID capsule Continue Meclizine [Antivert] 25 mg PO TID PRN PRN Reason: Dizziness Omeprazole Magnesium [Prilosec Otc] 20 mg PO DAILY Clorazepate [Tranxene] 3.75 mg PO TID Multivitamin (Centrum) [Centrum Tab] 1 tablet PO DAILY Acetaminophen 650 mg PO Q6H PRN PRN Reason: Fever, Headache, Mild Pain Aspirin [Ecotrin] 81 mg PO DAILY Propranolol HCl [Propranolol Tab] 10 tablet PO DAILY PARoxetine [Paxil] 20 mg PO QAM Ferrous Sulfate 325 mg PO DAILY Magnesium Chloride [Slow Mag] 64 mg PO DAILY Tamsulosin HCl 1 tablet PO BEDTIME Benzonatate 1 capsule PO TID PRN PRN Reason: Cough Discontinued levoFLOXacin [Levofloxacin] 1 tablet PO DAILY Meloxicam [Mobic] 12.5 mg PO DAILY - Follow Up or Referral Follow Up: Charlie Patterson DO [Primary Care Provider] - Vinay Mcmanus MD [Physician] - Nikhil Jiménez MD [Physician] - - Forms/Instructions Additional Discharge Instructions: Follow up with Dr. Patterson within 1 week of discharge. Follow up with Dr. Ronni Mcmanus within 1-2 weeks of discharge. Follow up with Dr. Jiménez within next 2-3 months regarding renal insufficiency. Exam - Constitutional Vitals: Period Temp Pulse Resp BP Sys/Serrano Pulse Ox Last 24 Hr 97.6 F-99.3 F 72-104 16-20 122-145/59-74 90-99 Exam: General appearance: no acute distress - Respiratory Respiratory exam: Present: clear to auscultation bilaterally - Cardiovascular Cardiovascular exam: Present: regular rate and rhythm - GI/Abdominal GI/Abdominal exam: Present: normal bowel sounds, soft - Extremities Exam Extremities exam: Absent: edema - Neurological Exam Neurological exam: Present: alert - Psychiatric Psychiatric exam: Present: normal mood - Skin Skin exam: Present: warm, dry Discharge Results Procedures and tests throughout hospitalization: Pending Orders 11/06/16 11:22 Blood Culture Stat Labs on day of discharge: Labs from last 24 hours 11/09/16 11/09/16 04:16 04:16 WBC 10.1 RBC 3.58 L Hgb 10.0 L Hct 31.5 L MCV 88.0 MCH 28 MCHC 31.7 L RDW 14.3 Plt Count 297 MPV 11.0 Neut % (Auto) 77.5 H Lymph % (Auto) 12.6 L [place] % (Auto) 6.0 Eos % (Auto) 1.1 Baso % (Auto) 0.1 Neut # (Auto) 7.8 H Lymph # (Auto) 1.3 L [place] # (Auto) 0.6 Eos # (Auto) 0.1 Baso # (Auto) 0.0 Immature Gran % 2.7 Nucleated RBC % 0.0 Immature Gran # 0.27 Nucleated RBCs # 0.00 Sodium 144 Potassium 5.1 Chloride 115 H Carbon Dioxide 22 Anion Gap 12.1 BUN 65 H Creatinine 2.00 H GFR Calculation 33 BUN/Creatinine Ratio 32.00 H Glucose 83 Calculated Osmolality 303.8 Calcium 8.1 L Phosphorus 2.7 Magnesium 1.8 Total Bilirubin < 0.39 AST 21 ALT 17 Alkaline Phosphatase 74 Total Protein 5.1 L Albumin 2.2 L Globulin 2.9 Albumin/Globulin Ratio 0.7 L Preliminary micro results at discharge 11/06/16 11:22 Blood Culture - Preliminary Blood No growth at 3 days 11/06/16 11:22 Blood Culture - Preliminary Blood No growth at 3 days DS: Provider Date of admission: 11/06/16 14:40 Primary care physician: Charlie Patterson DO Attending physician on admission: Charlie Patterson DO Consults: 11/06/16 17:20 Consult to Case Mgmt/Social Srvs [CONS] Routine Reason for Case Mgmt/Social Srvs: Discharge Planning 11/06/16 18:31 Consult to Physician [CONS] Routine Comment: Pneumonia, failed outpatient therapy Consulting Provider: Vinay Mcmanus Person Notified: DR. Ronni MCMANUS Date Notified: 11/07/16 Time Notified: :11/06/16 18:34 Consult to Pastoral Services [CONS] Routine Comment: Pastoral Screen Source of Request: Patient 11/07/16 12:28 Consult to Dietitian [CONS] Routine Reason for Dietitian: Supplements and/or Snacks Consult Comment: NOT EATING AT HOME 11/07/16 12:29 Consult to Case Mgmt/Social Srvs [CONS] Routine Reason for Case Mgmt/Social Srvs: Swingbed/SNF/Correction 11/09/16 10:50 Consult to Physical Therapy [CONS] Routine Reason for Physical Therapy: Evaluate and Treat 11/09/16 10:51 Consult to Case Mgmt/Social Srvs [CONS] Routine Reason for Case Mgmt/Social Srvs: Home Health 11/09/16 12:26 Consult to Case Mgmt/Social Srvs [CONS] Routine Reason for Case Mgmt/Social Srvs: Home Health Consult Comment: Home Health and PT at home Discharging clinician: Gi Mcmanus DO Expected date of discharge: 11/10/16
[2016-11-09] MEDS: ALUMINUM/MAGNES/SIMETH MAX STR 30 ML UDCUP PO PRN (23:43)
[2016-11-10] MEDS: SODIUM CHLORIDE 0.9% 1,000 ML IV SCH (05:33)
[2016-11-10] MEDS: MAGNESIUM HYDROXIDE SUSP 30 ML UDCUP PO SCH (05:34)
[2016-11-10 06:58] LABS: Calcium 7.9 MG/DL (8.5-10.1)
[2016-11-10 08:12] VITALS: BP 125/65
[2016-11-10] MEDS: CLORAZEPATE 3.75 MG TABLET PO SCH (09:00)
[2016-11-10] MEDS: MULTIVITAMIN (CENTRUM) TABLET PO SCH (09:00)
[2016-11-10] MEDS: PANTOPRAZOLE 40 MG VIAL IV SCH (09:00)
[2016-11-10] MEDS: PROPRANOLOL 10 MG TABLET PO SCH (09:00)
[2016-11-10] MEDS: PARoxetine 20 MG TABLET PO SCH (09:00)
[2016-11-10] MEDS: DOCUSATE SODIUM 100 MG CAPSULE PO SCH (09:00)
[2016-11-10] MEDS: ASPIRIN EC 81 MG TABLET PO SCH (09:00)
[2016-11-10] MEDS: MAGNESIUM CHLORIDE 64 MG TABLET PO SCH (09:00)
[2016-11-10] MEDS: FERROUS SULFATE 325 MG TABLET PO SCH (09:00)
--- NOTE | 2016-11-10 10:03 | Pulmonology Progress Note ---
Pulmonary - PN: Subj Interval history: This 86-year-old man came in with a right middle lobe pneumonia. He has been treated with antibiotics and clinically is much improved. He is ready for discharge. Will follow up with Dr. Sulaiman Patterson. Please call if needed further. Exam (Progress Note) - Constitutional Vitals: Period Temp Pulse Resp BP Sys/Serrano Pulse Ox Last 24 Hr 97.6 F-99.1 F 72-104 16-20 125-146/59-78 91-99 Exam: Vital signs normal. Pupils react to light. Throat is clear. Neck supple no bruits. Chest reveals few rhonchi over the right middle lobe otherwise clear. Heart normal rate and rhythm no murmurs. Abdomen soft nontender no masses. Extremities no clubbing cyanosis or edema. Calves nontender. Results - Labs CBC & BMP: 11/09/16 04:16 11/10/16 05:36 Lab Results: I have reviewed the past 24 hour labs Assessment and Plan (1) Pneumonia Status: Acute Assessment and plan: Had right middle lobe infiltrate on initial chest x-ray. Needs a follow-up chest x-ray when he returns to clinic. May take 4-6 weeks for this to clear up radiographically. Current Visit: Yes (2) Polycystic kidney disease Problem details: mass like effect Status: Chronic Assessment and plan: He does have some renal insufficiency but his creatinine has improved to 1.7 since admission. Current Visit: Yes (3) CKD (chronic kidney disease) stage 4, GFR 15-29 ml/min Problem details: Immproved to near baseline. Status: Chronic Assessment and plan: Follow-up with nephrology. Current Visit: Yes Specialty Discharge - Follow Up or Referrals Follow up with: Vinay Mcmullen MD [Physician] - 2 Weeks Nikhil Jiménez MD [Physician] - 2 Weeks Charlie Patterson DO [Primary Care Provider] - 2 Weeks
== END 2016-11-10 10:40 | disposition home or self-care (01) | DRG 194 ==
LOC: N.ED 10:56 → N.EDINP 14:40 → N.5E 17:15
PROVIDERS: ADMIT Family Medicine; ATTEND Family Medicine

== ENCOUNTER 2017-06-01 12:46 | Inpatient (IN) ==
[2017-06-01 14:56] LABS: Basophils % 0.2 % (0.0-0.8); Eosinophils # 0.2 10*3/uL (0.0-0.87); Eosinophils % 3.8 % (0.00-10.9); Hematocrit 34.2 VOL% (42.0-52.0); Hemoglobin 10.5 GM/DL (14.0-18.0); Immature Granulocytes % 0.2 %; Immature Granulocytes Absolute 0.01 #; Lymphocytes # 1.4 10*3/uL (1.4-4.0); Lymphocytes % 23.4 % (21.2-54.2); Mean Corpuscular HGB Conc 30.7 GM/DL (32-36); Mean Corpuscular Hemoglobin 27 PG (27-34); Mean Corpuscular Volume 88.4 FL (87-102); Mean Platelet Volume 11.3 FL (9.6-12.0); Monocytes # 0.5 10*3/uL (0.11-0.8); Neutrophils # 3.7 10*3/uL (1.4-7.4); Neutrophils % 63.4 % (38.7-73.9); Platelet Count 206 T/CUMM (130-400); Red Blood Count 3.87 MC/CUMM (3.8-5.5); Red Cell Distribution Width 17.3 % (9.3-17.3); White Blood Count 5.8 T/CUMM (4-12)
[2017-06-01 15:18] LABS: Albumin 3.8 G/DL (3.4-5.0); Bilirubin,Total 0.7 MG/DL (0.2-1.0); Calcium 8.8 MG/DL (8.5-10.1); Osmolality,Calculated 292.5 MOS/KG (273-304); Potassium 5.5 MMOL/L (3.5-5.1); Total Protein 6.9 G/DL (6.4-8.3)
[2017-06-01] MEDS ORDERED: FUROSEMIDE 40 MG/4 ML VIAL IV STA (18:07)
[2017-06-01] MEDS ORDERED: ACETAMINOPHEN 325 MG TABLET PO PRN (18:07)
[2017-06-01] MEDS ORDERED: ONDANSETRON 4 MG/2 ML VIAL IV PRN (18:07)
[2017-06-01] MEDS ORDERED: MECLIZINE 25 MG TABLET PO PRN (19:48)
[2017-06-01 20:43] LABS: CKMB % 2.7 %
[2017-06-01] MEDS: DOCUSATE SODIUM 100 MG CAPSULE PO SCH (20:43)
[2017-06-01] MEDS: ENOXAPARIN 30 MG/0.3 ML SYRINGE SUBCUT SCH (20:43)
[2017-06-01] MEDS: TAMSULOSIN 0.4 MG CAPSULE PO SCH (20:43)
[2017-06-01 20:47] LABS: Troponin I Only 0.052 NG/ML (0.00-0.045)
[2017-06-01] MEDS: traZODone 50 MG TABLET PO PRN (22:21)
[2017-06-02 05:52] LABS: Basophils % 0.4 % (0.0-0.8); Eosinophils # 0.2 10*3/uL (0.0-0.87); Eosinophils % 3.6 % (0.00-10.9); Hematocrit 31.7 VOL% (42.0-52.0); Hemoglobin 9.8 GM/DL (14.0-18.0); Immature Granulocytes % 0.4 %; Immature Granulocytes Absolute 0.02 #; Lymphocytes # 1.4 10*3/uL (1.4-4.0); Lymphocytes % 24.2 % (21.2-54.2); Mean Corpuscular HGB Conc 30.9 GM/DL (32-36); Mean Corpuscular Hemoglobin 27 PG (27-34); Mean Corpuscular Volume 88.1 FL (87-102); Mean Platelet Volume 10.9 FL (9.6-12.0); Monocytes # 0.6 10*3/uL (0.11-0.8); Monocytes % 10.3 % (1.7-12.7); Neutrophils # 3.4 10*3/uL (1.4-7.4); Neutrophils % 61.1 % (38.7-73.9); Platelet Count 186 T/CUMM (130-400); White Blood Count 5.6 T/CUMM (4-12)
[2017-06-02 06:13] LABS: Calcium 8.1 MG/DL (8.5-10.1); Osmolality,Calculated 300.8 MOS/KG (273-304); Potassium 5.1 MMOL/L (3.5-5.1)
[2017-06-02] MEDS: SODIUM CHLORIDE 0.9% 1,000 ML IV SCH (06:23)
[2017-06-02] MEDS: ASPIRIN EC 81 MG TABLET PO SCH (09:03)
[2017-06-02] MEDS: PROPRANOLOL 10 MG TABLET PO SCH (09:03)
[2017-06-02] MEDS: PARoxetine 20 MG TABLET PO SCH (09:03)
[2017-06-02] MEDS: PANTOPRAZOLE 40 MG TABLET PO SCH (09:03)
[2017-06-02] MEDS: DOCUSATE SODIUM 100 MG CAPSULE PO SCH ×2 (09:03→21:02)
[2017-06-02 12:05] LABS: Apearance,Urine CLEAR (Clear); Bilirubin,Urine Negative (Negative); Blood, Urine Small mg/dL (Negative); Glucose,Urine (UA) Negative (Negative); Hyaline Casts,Urine 4 /LPF (0-3); Ketones,Urine Negative (Negative); Nitrite,Urine Negative (Negative); Protein,Urine Negative; RBC,Urine 1 /HPF (0-4); Urine Color Straw (Yellow); Urine Specific Gravity 1.006 (1.001-1.035); Urine Urobilinogen < 2.0 EU/DL (0.2-1.0); WBC,Urine <1 /HPF (0-6)
[2017-06-02] MEDS: TAMSULOSIN 0.4 MG CAPSULE PO SCH (21:02)
[2017-06-02] MEDS: CARVEDILOL 3.125 MG TABLET PO SCH (21:02)
[2017-06-02] MEDS: traZODone 50 MG TABLET PO PRN (21:02)
[2017-06-02] MEDS: ENOXAPARIN 30 MG/0.3 ML SYRINGE SUBCUT SCH (21:02)
[2017-06-03] MEDS: SODIUM CHLORIDE 0.9% 1,000 ML IV SCH ×2 (04:02→23:24)
[2017-06-03 05:59] LABS: Basophils % 0.2 % (0.0-0.8); Eosinophils # 0.2 10*3/uL (0.0-0.87); Hematocrit 31.6 VOL% (42.0-52.0); Immature Granulocytes % 0.4 %; Immature Granulocytes Absolute 0.02 #; Lymphocytes # 1.5 10*3/uL (1.4-4.0); Lymphocytes % 25.6 % (21.2-54.2); Mean Corpuscular HGB Conc 31.6 GM/DL (32-36); Mean Corpuscular Hemoglobin 27 PG (27-34); Mean Corpuscular Volume 86.6 FL (87-102); Mean Platelet Volume 10.9 FL (9.6-12.0); Monocytes # 0.5 10*3/uL (0.11-0.8); Monocytes % 9.5 % (1.7-12.7); Neutrophils # 3.4 10*3/uL (1.4-7.4); Neutrophils % 60.3 % (38.7-73.9); Platelet Count 195 T/CUMM (130-400); Red Blood Count 3.65 MC/CUMM (3.8-5.5); Red Cell Distribution Width 17.2 % (9.3-17.3); White Blood Count 5.7 T/CUMM (4-12)
[2017-06-03 06:21] LABS: Calcium 7.7 MG/DL (8.5-10.1); Osmolality,Calculated 306.4 MOS/KG (273-304); Potassium 4.6 MMOL/L (3.5-5.1)
[2017-06-03] MEDS: PARoxetine 20 MG TABLET PO SCH (09:57)
[2017-06-03] MEDS: ASPIRIN EC 81 MG TABLET PO SCH (09:57)
[2017-06-03] MEDS: PANTOPRAZOLE 40 MG TABLET PO SCH (09:58)
[2017-06-03] MEDS: PROPRANOLOL 10 MG TABLET PO SCH (09:58)
[2017-06-03] MEDS: DOCUSATE SODIUM 100 MG CAPSULE PO SCH ×2 (09:58→21:35)
[2017-06-03] MEDS: CARVEDILOL 3.125 MG TABLET PO SCH ×2 (09:58→21:35)
[2017-06-03] MEDS: ENOXAPARIN 30 MG/0.3 ML SYRINGE SUBCUT SCH (21:36)
[2017-06-03] MEDS: TAMSULOSIN 0.4 MG CAPSULE PO SCH (21:36)
[2017-06-04] MEDS: SODIUM CHLORIDE 0.9% 1,000 ML IV SCH (01:46)
[2017-06-04 06:02] LABS: Basophils % 0.2 % (0.0-0.8); Eosinophils # 0.2 10*3/uL (0.0-0.87); Eosinophils % 3.6 % (0.00-10.9); Hemoglobin 9.2 GM/DL (14.0-18.0); Immature Granulocytes % 0.2 %; Immature Granulocytes Absolute 0.01 #; Lymphocytes # 1.4 10*3/uL (1.4-4.0); Lymphocytes % 26.5 % (21.2-54.2); Mean Corpuscular HGB Conc 29.7 GM/DL (32-36); Mean Corpuscular Hemoglobin 26 PG (27-34); Mean Corpuscular Volume 88.8 FL (87-102); Mean Platelet Volume 10.7 FL (9.6-12.0); Monocytes # 0.5 10*3/uL (0.11-0.8); Monocytes % 9.1 % (1.7-12.7); Neutrophils # 3.2 10*3/uL (1.4-7.4); Neutrophils % 60.4 % (38.7-73.9); Platelet Count 169 T/CUMM (130-400); Red Blood Count 3.49 MC/CUMM (3.8-5.5); Red Cell Distribution Width 17.3 % (9.3-17.3); White Blood Count 5.3 T/CUMM (4-12)
[2017-06-04 06:22] LABS: Potassium 4.8 MMOL/L (3.5-5.1)
[2017-06-04] MEDS: PANTOPRAZOLE 40 MG TABLET PO SCH (08:42)
[2017-06-04] MEDS: DOCUSATE SODIUM 100 MG CAPSULE PO SCH (08:42)
[2017-06-04] MEDS: CARVEDILOL 3.125 MG TABLET PO SCH (08:42)
[2017-06-04] MEDS: PARoxetine 20 MG TABLET PO SCH (08:42)
[2017-06-04] MEDS: ASPIRIN EC 81 MG TABLET PO SCH (08:42)
[2017-06-04] MEDS ORDERED: amLODIPine 2.5 MG TABLET PO SCH (09:00)
[2017-06-04 11:16] VITALS: BP 128/68
== END 2017-06-04 15:56 | disposition home health service (06) | DRG 291 ==
LOC: N.EDINP 12:46 → N.ED 12:46 → N.3E 17:27
PROVIDERS: ADMIT Family Medicine; ATTEND Family Medicine

== ENCOUNTER 2017-06-19 10:57 | Observation (INO) ==
[2017-06-19] MEDS ORDERED: ALBUTEROL/IPRATROPIUM 3 ML NEB RESP TX STA (14:56)
[2017-06-19 15:20] LABS: Basophils % 0.2 % (0.0-0.8); Eosinophils # 0.2 10*3/uL (0.0-0.87); Eosinophils % 3.8 % (0.00-10.9); Hematocrit 36.7 VOL% (42.0-52.0); Immature Granulocytes % 0.3 %; Immature Granulocytes Absolute 0.02 #; Lymphocytes # 0.8 10*3/uL (1.4-4.0); Lymphocytes % 12.8 % (21.2-54.2); Mean Corpuscular Hemoglobin 27 PG (27-34); Mean Corpuscular Volume 90.4 FL (87-102); Mean Platelet Volume 11.3 FL (9.6-12.0); Monocytes # 0.6 10*3/uL (0.11-0.8); Monocytes % 10.3 % (1.7-12.7); Neutrophils # 4.4 10*3/uL (1.4-7.4); Neutrophils % 72.6 % (38.7-73.9); Platelet Count 167 T/CUMM (130-400); Red Blood Count 4.06 MC/CUMM (3.8-5.5); Red Cell Distribution Width 17.2 % (9.3-17.3); White Blood Count 6.1 T/CUMM (4-12)
[2017-06-19] MEDS ORDERED: ONDANSETRON 4 MG/2 ML VIAL IV PRN (15:39)
[2017-06-19 15:41] LABS: Albumin 3.9 G/DL (3.4-5.0); Bilirubin,Total 0.6 MG/DL (0.2-1.0); Osmolality,Calculated 294.3 MOS/KG (273-304); Potassium 5.3 MMOL/L (3.5-5.1); Total Protein 7.5 G/DL (6.4-8.3)
[2017-06-19] MEDS ORDERED: methylPREDNISolone SOD SUC 125 MG/2 ML VIAL IV STA (15:41)
[2017-06-19 16:25] LABS: Apearance,Urine CLEAR (Clear); Bilirubin,Urine Negative (Negative); Blood, Urine Small mg/dL (Negative); Glucose,Urine (UA) Negative (Negative); Hyaline Casts,Urine 8 /LPF (0-3); Ketones,Urine 5 mg/dL (Negative); Mucus,Urine Occasional /LPF (Occasional); Nitrite,Urine Negative (Negative); Protein,Urine Negative; RBC,Urine 9 /HPF (0-4); Urine Color Yellow (Yellow); Urine Specific Gravity 1.011 (1.001-1.035); Urine Urobilinogen < 2.0 EU/DL (0.2-1.0); WBC,Urine <1 /HPF (0-6)
[2017-06-19] MEDS ORDERED: methylPREDNISolone SOD SUC 125 MG/2 ML VIAL ONE (16:47)
[2017-06-19] MEDS: methylPREDNISolone SOD SUC 125 MG/2 ML VIAL IV SCH ×2 (17:27→23:53)
[2017-06-19] MEDS: ALBUTEROL 2.5 MG/3 ML NEB RESP TX SCH (19:38)
[2017-06-19] MEDS: DOCUSATE SODIUM 100 MG CAPSULE PO SCH (21:04)
[2017-06-20] MEDS: ALBUTEROL 2.5 MG/3 ML NEB RESP TX SCH ×4 (00:14→20:01)
[2017-06-20] MEDS ORDERED: CALCIUM CARBONATE CHEW 500 MG TABLET PO PRN (06:47)
[2017-06-20] MEDS ORDERED: traZODone 50 MG TABLET PO PRN (06:47)
[2017-06-20] MEDS ORDERED: PANTOPRAZOLE 40 MG TABLET PO SCH (09:00)
[2017-06-20] MEDS ORDERED: PARoxetine 20 MG TABLET PO SCH (09:00)
[2017-06-20] MEDS ORDERED: DOCUSATE SODIUM 100 MG CAPSULE PO SCH (09:00)
[2017-06-20] MEDS: AZITHROMYCIN 250 MG TABLET PO SCH (09:13)
[2017-06-20] MEDS: CLORAZEPATE 3.75 MG TABLET PO SCH ×3 (09:13→21:04)
[2017-06-20] MEDS: PANTOPRAZOLE 40 MG TABLET PO SCH (09:13)
[2017-06-20] MEDS: DOCUSATE SODIUM 100 MG CAPSULE PO SCH ×2 (09:13→21:07)
[2017-06-20] MEDS: methylPREDNISolone SOD SUC 125 MG/2 ML VIAL IV SCH ×2 (09:13→21:03)
[2017-06-20] MEDS: FUROSEMIDE 20 MG TABLET PO SCH (09:14)
[2017-06-20] MEDS: TAMSULOSIN 0.4 MG CAPSULE PO SCH ×2 (09:14→21:04)
[2017-06-20] MEDS: CARVEDILOL 3.125 MG TABLET PO SCH ×2 (09:14→21:05)
[2017-06-20] MEDS: ASPIRIN EC 81 MG TABLET PO SCH (09:14)
[2017-06-21] MEDS: ACETAMINOPHEN 325 MG TABLET PO PRN ×2 (00:49→19:33)
[2017-06-21] MEDS: ALBUTEROL 2.5 MG/3 ML NEB RESP TX SCH ×4 (00:53→20:40)
[2017-06-21] MEDS: AZITHROMYCIN 250 MG TABLET PO SCH (09:35)
[2017-06-21] MEDS: ASPIRIN EC 81 MG TABLET PO SCH (09:35)
[2017-06-21] MEDS: CARVEDILOL 3.125 MG TABLET PO SCH ×2 (09:35→20:07)
[2017-06-21] MEDS: DOCUSATE SODIUM 100 MG CAPSULE PO SCH ×2 (09:35→20:07)
[2017-06-21] MEDS: PANTOPRAZOLE 40 MG TABLET PO SCH (09:35)
[2017-06-21] MEDS: CLORAZEPATE 3.75 MG TABLET PO SCH ×3 (09:35→20:08)
[2017-06-21] MEDS: TAMSULOSIN 0.4 MG CAPSULE PO SCH ×2 (09:35→20:07)
[2017-06-21] MEDS: methylPREDNISolone SOD SUC 125 MG/2 ML VIAL IV SCH ×2 (09:36→20:07)
[2017-06-22] MEDS: ALBUTEROL 2.5 MG/3 ML NEB RESP TX SCH ×4 (00:15→19:00)
[2017-06-22 06:05] LABS: Hematocrit 32.9 VOL% (42.0-52.0); Hemoglobin 10.3 GM/DL (14.0-18.0); Immature Granulocytes % 0.7 %; Immature Granulocytes Absolute 0.07 #; Lymphocytes # 0.4 10*3/uL (1.4-4.0); Lymphocytes % 3.9 % (21.2-54.2); Mean Corpuscular HGB Conc 31.3 GM/DL (32-36); Mean Corpuscular Hemoglobin 27 PG (27-34); Mean Platelet Volume 11.6 FL (9.6-12.0); Monocytes # 0.3 10*3/uL (0.11-0.8); Monocytes % 2.4 % (1.7-12.7); Neutrophils # 9.9 10*3/uL (1.4-7.4); Platelet Count 200 T/CUMM (130-400); Red Blood Count 3.78 MC/CUMM (3.8-5.5); Red Cell Distribution Width 17.6 % (9.3-17.3); White Blood Count 10.6 T/CUMM (4-12)
[2017-06-22] MEDS: methylPREDNISolone SOD SUC 125 MG/2 ML VIAL IV SCH ×2 (06:26→22:05)
[2017-06-22] MEDS: TAMSULOSIN 0.4 MG CAPSULE PO SCH ×2 (06:26→18:04)
[2017-06-22 06:31] LABS: Calcium 7.9 MG/DL (8.5-10.1); Osmolality,Calculated 304.4 MOS/KG (273-304); Potassium 4.9 MMOL/L (3.5-5.1)
[2017-06-22 06:32] LABS: Lymphocytes 2 % (20-55); Segmented Neutrophils 96 % (50-85); Total Cells Counted 100
[2017-06-22 06:33] LABS: Giant Platelets Few; Hypochromasia 1+; Ovalocytes Slight; Platelet Estimate Adequate
[2017-06-22] MEDS: AZITHROMYCIN 250 MG TABLET PO SCH (09:12)
[2017-06-22] MEDS: CARVEDILOL 3.125 MG TABLET PO SCH ×2 (09:12→22:05)
[2017-06-22] MEDS: ASPIRIN EC 81 MG TABLET PO SCH (09:12)
[2017-06-22] MEDS: DOCUSATE SODIUM 100 MG CAPSULE PO SCH ×2 (09:12→22:05)
[2017-06-22] MEDS: CLORAZEPATE 3.75 MG TABLET PO SCH ×3 (09:12→22:05)
[2017-06-22] MEDS: PANTOPRAZOLE 40 MG TABLET PO SCH (09:12)
[2017-06-22] MEDS: VORTIOXETINE HYDROBROMIDE 10 MG PO SCH (09:13)
[2017-06-22] MEDS: FUROSEMIDE 20 MG TABLET PO SCH (09:13)
[2017-06-22] MEDS: ACETAMINOPHEN 325 MG TABLET PO PRN ×2 (16:48→22:11)
[2017-06-22] MEDS ORDERED: TUBERCULIN SKIN TEST 0.1 ML SYRINGE INTRADERM ONE (18:00)
[2017-06-23] MEDS: ALBUTEROL 2.5 MG/3 ML NEB RESP TX SCH ×2 (00:10→07:00)
[2017-06-23] MEDS: TAMSULOSIN 0.4 MG CAPSULE PO SCH (06:38)
[2017-06-23] MEDS: FUROSEMIDE 20 MG TABLET PO SCH (08:50)
[2017-06-23] MEDS: PANTOPRAZOLE 40 MG TABLET PO SCH (08:51)
[2017-06-23] MEDS: ASPIRIN EC 81 MG TABLET PO SCH (08:51)
[2017-06-23] MEDS: CLORAZEPATE 3.75 MG TABLET PO SCH (08:51)
[2017-06-23] MEDS: CARVEDILOL 3.125 MG TABLET PO SCH (08:51)
[2017-06-23] MEDS: DOCUSATE SODIUM 100 MG CAPSULE PO SCH (08:51)
[2017-06-23] MEDS: VORTIOXETINE HYDROBROMIDE 10 MG PO SCH (08:52)
[2017-06-23] MEDS: methylPREDNISolone SOD SUC 125 MG/2 ML VIAL IV SCH (08:52)
[2017-06-23] MEDS: AZITHROMYCIN 250 MG TABLET PO SCH (08:52)
[2017-06-23 12:02] VITALS: BP 112/56
== END 2017-06-23 14:44 | disposition home health service (06) ==
LOC: N.ED 10:57 → N.EDINP 10:57 → N.2E 17:20
PROVIDERS: ADMIT Family Medicine; ATTEND Family Medicine

== ENCOUNTER 2017-07-12 21:42 | Inpatient (IN) ==
[2017-07-12] MEDS ORDERED: ONDANSETRON 4 MG/2 ML VIAL IV STA (22:30)
[2017-07-12] MEDS ORDERED: SODIUM CHLORIDE 0.9% 1,000 ML IV STA (22:30)
[2017-07-12] MEDS ORDERED: HYDROmorphone 2 MG/1 ML VIAL IV STA (22:30)
[2017-07-12] MEDS ORDERED: PANTOPRAZOLE 40 MG VIAL IV STA (22:30)
[2017-07-12] MEDS ORDERED: ALBUTEROL/IPRATROPIUM 3 ML NEB RESP TX STA (22:35)
[2017-07-12] MEDS ORDERED: methylPREDNISolone SOD SUC 125 MG/2 ML VIAL IV STA (22:35)
[2017-07-12] MEDS ORDERED: FUROSEMIDE 40 MG/4 ML VIAL IV STA (22:35)
[2017-07-12] MEDS ORDERED: HYDROmorphone 2 MG/1 ML VIAL ONE (22:47)
[2017-07-12] MEDS ORDERED: ONDANSETRON 4 MG/2 ML VIAL ONE (22:47)
[2017-07-13 00:53] LABS: Basophils % 0.3 % (0.0-0.8); Eosinophils % 0.1 % (0.00-10.9); Hematocrit 33.5 VOL% (42.0-52.0); Hemoglobin 10.4 GM/DL (14.0-18.0); Immature Granulocytes % 0.4 %; Immature Granulocytes Absolute 0.03 #; Lymphocytes # 0.6 10*3/uL (1.4-4.0); Lymphocytes % 8.2 % (21.2-54.2); Mean Corpuscular Hemoglobin 28 PG (27-34); Mean Corpuscular Volume 89.1 FL (87-102); Mean Platelet Volume 10.3 FL (9.6-12.0); Monocytes # 0.3 10*3/uL (0.11-0.8); Monocytes % 4.9 % (1.7-12.7); Neutrophils # 5.8 10*3/uL (1.4-7.4); Neutrophils % 86.1 % (38.7-73.9); Platelet Count 258 T/CUMM (130-400); Red Blood Count 3.76 MC/CUMM (3.8-5.5); White Blood Count 6.7 T/CUMM (4-12)
[2017-07-13 01:01] LABS: INR 1.1; PT Patient Result 11.5 SECS
[2017-07-13] MEDS ORDERED: PANTOPRAZOLE 40 MG VIAL IV ONE (01:04)
[2017-07-13] MEDS ORDERED: FUROSEMIDE 40 MG/4 ML VIAL ONE (01:04)
[2017-07-13] MEDS ORDERED: methylPREDNISolone SOD SUC 125 MG/2 ML VIAL ONE (01:04)
[2017-07-13 01:13] LABS: Lactic Acid 1.8 MMOL/L (0.4-2.0)
[2017-07-13 01:19] LABS: Alanine Aminotransferase 17 U/L (16-61); Albumin 2.8 G/DL (3.4-5.0); Alkaline Phosphatase 127 U/L (45-117); Amylase 44 U/L (25-115); Aspartate Amino Transferase 20 U/L (0-37); Blood Urea Nitrogen 69 MG/DL (7-18); Calcium 7.9 MG/DL (8.5-10.1); Glucose 100 MG/DL (74-106); Osmolality,Calculated 296.5 MOS/KG (273-304); Sodium 139 MMOL/L (136-145); Total Protein 6.2 G/DL (6.4-8.3); Troponin I Only < 0.015 NG/ML (0.00-0.045)
[2017-07-13] MEDS ORDERED: cefTRIAXone 1,000 MG in SODIUM CHLORIDE 0.9% 100 ML IV STA (01:24)
[2017-07-13] MEDS ORDERED: CALCIUM CHLORIDE 1,000 MG/10 ML SYRINGE IV STA (01:28)
[2017-07-13] MEDS ORDERED: PIPERACILLIN/TAZOBACTAM 2,250 MG in SODIUM CHLORIDE 0.9% 100 ML IV STA (01:28)
[2017-07-13] MEDS ORDERED: CALCIUM CHLORIDE 1,000 MG/10 ML SYRINGE IV ONE (01:48)
[2017-07-13] MEDS ORDERED: PIPERACILLIN/TAZOBACTAM 3,375 MG VIAL IV ONE (01:59)
[2017-07-13] MEDS ORDERED: SODIUM CHLORIDE 0.9% 100 ML IV ONE (01:59)
[2017-07-13] MEDS ORDERED: PIPERACILLIN/TAZOBACTAM 3,375 MG in SODIUM CHLORIDE 0.9% 100 ML IV ONE (02:00)
[2017-07-13] MEDS ORDERED: ACETAMINOPHEN 325 MG TABLET PO PRN (04:56)
[2017-07-13] MEDS ORDERED: ALBUTEROL/IPRATROPIUM 3 ML NEB RESP TX PRN (04:56)
[2017-07-13] MEDS ORDERED: ONDANSETRON 4 MG/2 ML VIAL IV PRN (04:56)
[2017-07-13] MEDS ORDERED: LACTULOSE 20 GM/30 ML UDCUP PO PRN (04:56)
[2017-07-13 05:23] LABS: Apearance,Urine Slightly Hazy (Clear); Bilirubin,Urine Negative (Negative); Blood, Urine Negative (Negative); Glucose,Urine (UA) Negative (Negative); Ketones,Urine Negative (Negative); Mucus,Urine Occasional /LPF (Occasional); Nitrite,Urine Negative (Negative); Protein,Urine 100 MG/DL; RBC,Urine 1 /HPF (0-4); Urine Color Amber (Yellow); Urine Specific Gravity 1.013 (1.001-1.035); WBC,Urine <1 /HPF (0-6)
[2017-07-13] MEDS: SODIUM CHLORIDE 0.9% 1,000 ML IV SCH ×3 (05:29→21:08)
[2017-07-13] MEDS: SODIUM POLYSTYRENE SULFATE 15 GM/60 ML BOTTLE PO SCH ×2 (07:23→15:34)
[2017-07-13] MEDS: FUROSEMIDE 40 MG/4 ML VIAL IV SCH ×2 (08:27→15:36)
[2017-07-13] MEDS: DOCUSATE SODIUM 100 MG CAPSULE PO SCH ×2 (08:54→23:05)
[2017-07-13] MEDS ORDERED: INFLUENZA VIRUS VACCINE 0.5 ML SYRINGE IM ONE (09:00)
[2017-07-13] MEDS ORDERED: PANTOPRAZOLE 40 MG TABLET PO SCH (09:00)
[2017-07-13] MEDS: methylPREDNISolone SOD SUC 40 MG/1 ML VIAL IV SCH ×2 (09:03→16:51)
[2017-07-13] MEDS: PANTOPRAZOLE 40 MG VIAL IV SCH (09:05)
[2017-07-13] MEDS: PIPERACILLIN/TAZOBACTAM 3,375 MG in SODIUM CHLORIDE 0.9% 100 ML IV SCH (15:46)
[2017-07-13] MEDS: MORPHINE 2 MG/1 ML SYRINGE IV PRN ×2 (16:50→21:09)
[2017-07-14] MEDS: SODIUM POLYSTYRENE SULFATE 15 GM/60 ML BOTTLE PO SCH ×4 (00:11→23:00)
[2017-07-14] MEDS: methylPREDNISolone SOD SUC 40 MG/1 ML VIAL IV SCH ×3 (00:28→16:59)
[2017-07-14] MEDS: MORPHINE 2 MG/1 ML SYRINGE IV PRN ×4 (02:03→21:43)
[2017-07-14] MEDS: PIPERACILLIN/TAZOBACTAM 3,375 MG in SODIUM CHLORIDE 0.9% 100 ML IV SCH ×2 (04:20→16:48)
[2017-07-14 05:12] LABS: Basophils % 0.1 % (0.0-0.8); Hematocrit 30.7 VOL% (42.0-52.0); Immature Granulocytes % 0.4 %; Immature Granulocytes Absolute 0.04 #; Lymphocytes # 0.5 10*3/uL (1.4-4.0); Lymphocytes % 4.6 % (21.2-54.2); Mean Corpuscular HGB Conc 29.3 GM/DL (32-36); Mean Corpuscular Hemoglobin 27 PG (27-34); Mean Corpuscular Volume 92.7 FL (87-102); Mean Platelet Volume 10.6 FL (9.6-12.0); Monocytes # 0.4 10*3/uL (0.11-0.8); Monocytes % 3.7 % (1.7-12.7); Neutrophils # 9.7 10*3/uL (1.4-7.4); Neutrophils % 91.2 % (38.7-73.9); Platelet Count 218 T/CUMM (130-400); Red Blood Count 3.31 MC/CUMM (3.8-5.5); Red Cell Distribution Width 16.3 % (9.3-17.3); White Blood Count 10.7 T/CUMM (4-12)
[2017-07-14 05:34] LABS: Band Neutrophils 7 % (0-10); Lymphocytes 1 % (20-55); Platelet Estimate Adequate; Segmented Neutrophils 87 % (50-85); Total Cells Counted 100
[2017-07-14 05:35] LABS: Burr Cells Slight; Giant Platelets Few; Hypochromasia 1+; Ovalocytes Slight
[2017-07-14 05:45] LABS: Albumin 2.2 G/DL (3.4-5.0); Bilirubin,Total 0.9 MG/DL (0.2-1.0); Calcium 7.5 MG/DL (8.5-10.1); Osmolality,Calculated 310.1 MOS/KG (273-304); Total Protein 5.7 G/DL (6.4-8.3)
[2017-07-14 05:49] LABS: Potassium 6.5 MMOL/L (3.5-5.1)
[2017-07-14] MEDS: SODIUM CHLORIDE 0.9% 1,000 ML IV SCH ×2 (06:47→11:26)
[2017-07-14] MEDS: DOCUSATE SODIUM 100 MG CAPSULE PO SCH ×2 (09:39→21:36)
[2017-07-14] MEDS: FUROSEMIDE 40 MG/4 ML VIAL IV SCH ×2 (09:42→16:48)
[2017-07-14] MEDS: PANTOPRAZOLE 40 MG VIAL IV SCH (09:44)
[2017-07-14] MEDS: SODIUM BICARB INJ 50 MEQ in SODIUM CHLORIDE 0.45% 1,000 ML IV SCH (14:00)
[2017-07-15] MEDS: SODIUM BICARB INJ 50 MEQ in SODIUM CHLORIDE 0.45% 1,000 ML IV SCH ×2 (01:00→10:24)
[2017-07-15] MEDS: methylPREDNISolone SOD SUC 40 MG/1 ML VIAL IV SCH ×3 (02:00→22:20)
[2017-07-15] MEDS: MORPHINE 2 MG/1 ML SYRINGE IV PRN ×6 (04:25→23:57)
[2017-07-15] MEDS: PIPERACILLIN/TAZOBACTAM 3,375 MG in SODIUM CHLORIDE 0.9% 100 ML IV SCH ×2 (04:30→15:23)
[2017-07-15 05:59] LABS: Calcium 7.5 MG/DL (8.5-10.1); Osmolality,Calculated 316.8 MOS/KG (273-304); Potassium 4.3 MMOL/L (3.5-5.1)
[2017-07-15] MEDS ORDERED: CLORAZEPATE 3.75 MG TABLET PO PRN (06:52)
[2017-07-15] MEDS ORDERED: CALCIUM CARBONATE CHEW 500 MG TABLET PO PRN (06:54)
[2017-07-15] MEDS ORDERED: traZODone 50 MG TABLET PO PRN (06:54)
[2017-07-15] MEDS: SODIUM POLYSTYRENE SULFATE 15 GM/60 ML BOTTLE PO SCH (07:01)
[2017-07-15] MEDS: LORazepam 2 MG/1 ML VIAL IV PRN ×3 (07:57→17:51)
[2017-07-15] MEDS: PARoxetine 20 MG TABLET PO SCH (08:30)
[2017-07-15] MEDS: DOCUSATE SODIUM 100 MG CAPSULE PO SCH ×2 (08:30→21:11)
[2017-07-15] MEDS: FUROSEMIDE 40 MG/4 ML VIAL IV SCH ×2 (08:31→15:23)
[2017-07-15] MEDS: PANTOPRAZOLE 40 MG VIAL IV SCH (08:31)
[2017-07-15] MEDS: ASPIRIN EC 81 MG TABLET PO SCH (08:31)
[2017-07-16] MEDS ORDERED: DILTIAZEM 25 MG/5 ML VIAL IV ONE (00:09)
[2017-07-16] MEDS: DILTIAZEM INJ 100 MG in SODIUM CHLORIDE 0.9% 100 ML IV SCH ×2 (00:25→06:36)
[2017-07-16] MEDS: SODIUM BICARB INJ 50 MEQ in SODIUM CHLORIDE 0.45% 1,000 ML IV SCH (00:28)
[2017-07-16] MEDS: LORazepam 2 MG/1 ML VIAL IV PRN ×4 (02:16→20:35)
[2017-07-16] MEDS: PIPERACILLIN/TAZOBACTAM 3,375 MG in SODIUM CHLORIDE 0.9% 100 ML IV SCH ×2 (04:55→20:34)
[2017-07-16 06:15] LABS: Basophils % 0.1 % (0.0-0.8); Hematocrit 31.1 VOL% (42.0-52.0); Hemoglobin 9.7 GM/DL (14.0-18.0); Immature Granulocytes % 1.4 %; Immature Granulocytes Absolute 0.22 #; Lymphocytes # 0.3 10*3/uL (1.4-4.0); Lymphocytes % 1.6 % (21.2-54.2); Mean Corpuscular HGB Conc 31.2 GM/DL (32-36); Mean Corpuscular Hemoglobin 27 PG (27-34); Mean Corpuscular Volume 86.6 FL (87-102); Mean Platelet Volume 11.1 FL (9.6-12.0); Monocytes # 0.4 10*3/uL (0.11-0.8); Monocytes % 2.4 % (1.7-12.7); NRBC # 0.02 10*3/uL; Neutrophils # 14.7 10*3/uL (1.4-7.4); Neutrophils % 94.5 % (38.7-73.9); Platelet Count 208 T/CUMM (130-400); Red Blood Count 3.59 MC/CUMM (3.8-5.5); Red Cell Distribution Width 16.4 % (9.3-17.3); White Blood Count 15.5 T/CUMM (4-12)
[2017-07-16] MEDS: methylPREDNISolone SOD SUC 40 MG/1 ML VIAL IV SCH (06:20)
[2017-07-16 06:38] LABS: Band Neutrophils 1 % (0-10); Giant Platelets Few; Hypochromasia 1+; Lymphocytes 1 % (20-55); Ovalocytes Slight; Platelet Estimate Adequate; Segmented Neutrophils 94 % (50-85); Total Cells Counted 100
[2017-07-16 06:49] LABS: Calcium 7.3 MG/DL (8.5-10.1); Osmolality,Calculated 322.6 MOS/KG (273-304); Potassium 3.3 MMOL/L (3.5-5.1)
[2017-07-16] MEDS: ASPIRIN EC 81 MG TABLET PO SCH (08:59)
[2017-07-16] MEDS: PARoxetine 20 MG TABLET PO SCH (08:59)
[2017-07-16] MEDS: PANTOPRAZOLE 40 MG VIAL IV SCH (08:59)
[2017-07-16] MEDS: DOCUSATE SODIUM 100 MG CAPSULE PO SCH ×2 (08:59→20:33)
[2017-07-16] MEDS: FUROSEMIDE 40 MG/4 ML VIAL IV SCH (08:59)
[2017-07-16] MEDS: MORPHINE 2 MG/1 ML SYRINGE IV PRN ×3 (10:12→16:14)
[2017-07-16] MEDS ORDERED: SODIUM CHLORIDE 0.9% 1,000 ML IV SCH (15:00)
[2017-07-16] MEDS: CARVEDILOL 3.125 MG TABLET PO SCH (16:32)
[2017-07-16] MEDS ORDERED: methylPREDNISolone SOD SUC 40 MG/1 ML VIAL IV SCH (21:00)
[2017-07-17] MEDS: LORazepam 2 MG/1 ML VIAL IV PRN ×2 (01:38→05:43)
[2017-07-17] MEDS ORDERED: DEXTROSE 5% NACL 0.45% 1,000 ML IV SCH (08:00)
[2017-07-17] MEDS ORDERED: LORazepam 2 MG/1 ML VIAL IV PRN (08:30)
[2017-07-17] MEDS ORDERED: FUROSEMIDE 40 MG/4 ML VIAL IV SCH (09:00)
[2017-07-17] MEDS: CARVEDILOL 3.125 MG TABLET PO SCH ×2 (10:26→17:49)
[2017-07-17] MEDS ORDERED: TUBERCULIN SKIN TEST 0.1 ML SYRINGE INTRADERM ONE (11:45)
[2017-07-18] MEDS: MORPHINE 2 MG/1 ML SYRINGE IV PRN
[2017-07-18 00:41] VITALS: BP 162/67
== END 2017-07-18 00:50 | disposition expired | DRG 391 ==
LOC: N.ED 21:42 → N.EDINP 07-13 01:45 → N.ICU 07-13 03:29 → N.2E 07-16 13:56
PROVIDERS: ADMIT Family Medicine; ATTEND Family Medicine